=== PATIENT | male | born 1950 | race Asian ===

== ENCOUNTER 2021-04-25 11:11 | Emergency (ER) | payer MEDICARE ==
[~2021-04-25] VITALS: Ht 167.6 cm; Wt 58.1 kg
[2021-04-25 11:43] LABS: BASOPHILS % (AUTO) 0.3 % (0.0-2.0); EOSINOPHILS % (AUTO) 0.6 % (1.0-6.0); HEMOGLOBIN 13.9 g/dL (13.5-17.5); LYMPHOCYTES # (AUTO) 0.3 K/uL (1.0-4.8); LYMPHOCYTES % (AUTO) 3.2 % (22.0-44.0); MEAN CORPUSCULAR HEMOGLOBIN 30.3 pg (26.0-34.0); MEAN CORPUSCULAR VOLUME 92 fL (80-100); MONOCYTES # (AUTO) 0.4 K/uL (0.1-1.0); MONOCYTES % (AUTO) 4.5 % (2.0-9.0); NEUTROPHILS # (AUTO) 8.7 K/uL (1.8-7.7); NEUTROPHILS % (AUTO) 91.4 % (40.0-70.0); PLATELET COUNT (AUTO) 206 K/uL (150-450); RED BLOOD CELL COUNT(AUTO) 4.57 MIL/uL (4.50-5.90); RED CELL DISTRIBUTION WIDTH 13.8 % (11.5-14.5)
[2021-04-25 11:49] LABS: ANION GAP 10 mmol/L (8-16); CALCIUM, TOTAL 8.2 mg/dL (8.8-10.5); CARBON DIOXIDE 23 mmol/L (22-29); CHLORIDE 102 mmol/L (98-107); CREATININE 1.14 mg/dL (0.60-1.30); GLOMERULAR FILTR. RATE CALC > 60 mL/min (>60); GLUCOSE,RANDOM 133 mg/dL (70-110); POTASSIUM 3.5 mmol/L (3.5-5.1); SODIUM SERUM 135 mmol/L (136-145); UREA NITROGEN, BLOOD 17 mg/dL (7-18)
[2021-04-25 11:53] LABS: INR 1.2 (0.9-1.1); PROTHROMBIN TIME 12.6 SEC (9.4-11.6)
[2021-04-25 11:55] LABS: ALANINE AMINOTRANSFERASE 19 U/L (12-78); ALBUMIN 3.1 g/dL (3.4-5.0); ALKALINE PHOSPHATASE 29 U/L (46-116); ASPARTATE AMINOTRANSFERASE 24 U/L (15-37); BILIRUBIN,TOTAL 0.9 mg/dL (0.1-1.0); TOTAL PROTEIN, SERUM 5.8 g/dL (6.4-8.2)
[2021-04-25] MEDS: DILTIAZEM HCL 5 MG/ML 5 ML VIAL IVP ONE ×2 (12:00→12:06)
[2021-04-25] MEDS ORDERED: ASPIRIN 300 MG RECTAL SUPPOSITORY PR ONE (12:15)
[2021-04-25 12:45] VITALS: BP 127/69
== END 2021-04-25 12:58 | disposition short-term general hospital (02) ==
LOC: EMS 11:57
DX: I63.9 Cerebral infarction, unspecified (principal); I48.91 Unspecified atrial fibrillation
CPT/HCPCS: 36415; 70450; 70496; 71045; 72125; 80053; 82962; 84484; 85025; 85610; 93005; 96374; 99291; J3490